=== PATIENT | male | born 1995 | race Two or more races ===

== ENCOUNTER 2018-03-27 16:44 | Emergency (ER) | payer OTHER ==
[~2018-03-27] VITALS: Ht 170.2 cm; Wt 79.2 kg
[2018-03-27 16:48] VITALS: BP 134/99
[2018-03-27] MEDS ORDERED: PLEASE ENTER ALLERGIES MC SCH (17:00)
[2018-03-27] MEDS ORDERED: DIPH,PERTUSS(ACELL),TET VAC/PF 0.5 ML IM-VACC ONE ×2 (17:00→17:11)
[2018-03-27] MEDS ORDERED: L.E.T SOLUTION TP ONE ×2 (17:13→18:30)
== END 2018-03-27 18:03 | disposition home or self-care (01) ==
LOC: ED 17:53
DX: R04.0 Epistaxis (principal); T17.1XXA Foreign body in nostril, initial encounter; W45.8XXA Other foreign body or object entering through skin, initial encounter; Y93.89 Activity, other specified; Y92.89 Other specified places as the place of occurrence of the external cause; Y99.8 Other external cause status
CPT/HCPCS: 90471; 90715; 99283